=== PATIENT | female | born 1995 | race Caucasian/White ===

== ENCOUNTER → 2020-01-19 | Outpatient (CLI) | payer BC, OTHER ==
--- NOTE | 2020-01-20 07:54 | EKG ---
[facility] [place] [address] ELECTROCARDIOGRAM REPORT Name: LEONARD MOSER Room #: [facility].#: [id number] Admission: 01/19/20 Attend Phys: Gautam Marcano, Discharge: Date of : [birth year] Report #: [id number] THIS REPORT FOR: cc: RANGEL - Candice family physician/PCP RANGEL - Candice family physician/PCP Enrique Ly MD MERGED WITH [facility] THIS REPORT FOR: //name// [facility] Test Date: 2020-01-19 Test Time: 12:13:28 Pat Name: LEONARD MOSER Department: Room: Gender: F [employer] Office Manager: Marga TAVAREZ : 1995 Requested By: Gautam Marcano Order Number: [id number] MD: Enrique Ly Measurements Intervals [place] Rate: 96 P: 81 ID: [id number] QRS: 91 QRSD: 85 T: 45 QT: 345 QTc: 436 Interpretive Statements Sinus rhythm Right atrial enlargement Borderline right axis deviation No previous ECG available for comparison Electronically Signed On 01-20-2020 7:54:20 CDT by Enrique Ly [email or web address] <ELECTRONICALLY SIGNED> By: Enrique Ly MD, FACC 01/20/20 0754 1213 1213 Enrique Ly MD, [facility] /EPI
== END ==
LOC: CV 11:43
PROVIDERS: ATTEND Obstetrics & Gynecology
DX: I51.7 Cardiomegaly (principal); I49.8 Other specified cardiac arrhythmias